=== PATIENT | male | born 1970 | race Caucasian/White ===

== ENCOUNTER 2016-09-19 18:42 | Emergency (ER) | payer SELFPAY ==
[~2016-09-19] VITALS: Ht 175.3 cm; Wt 104.3 kg
--- NOTE | ~2016-09-19 | EKG ---
PATIENT: HILLARY PEÑA UNIT #: [id number] Ventricular Rate: 74 BPM Atrial Rate: 74 BPM P-R Interval: 154 ms QRS Duration: 100 ms Q-T Interval: 370 ms QTC Calculation(Bezet): 410 ms P [place]: 27 degrees Calculated R [place]: 42 degrees Calculated T [place]: 4 degrees Diagnosis Line: Normal sinus rhythm Diagnosis Line: Normal ECG Diagnosis Line: No previous ECGs available Diagnosis Line: Confirmed by KARINA MAYNARD MD ([id number]) on Diagnosis Line: 09/20/2016 2:42:47 PM INTERPRETING MD: ALEYDA DUARTE
--- NOTE | ~2016-09-19 | CR63 ---
[facility] A Service of [facility] & [facility] RADIOLOGY TEXT RESULTS PATIENT: HILLARY PEÑA LOCATION: SED : 68 UNIT #: [id number] AGE: [address]: Aubrey Mckee SEX: M ORDER DR: [id number] [place] [id number] MR#: [id number] #: [id number] NAME: HILLARY PEÑA : 1970 SEX: M STUDY DATE/TIME: 09/19/2016 19:23 UNIT: SED ROOM: STUDY DESCRIPTION: CR Chest 2 View Attending Physician: Aubrey Mckee P.A.-C. Ordering Physician: Aubrey Mckee P.A.-C. Primary Care Physician: Primary Care Physician No MEDICAL IMAGING REPORT This report is preliminary unless electronic signature is present. EXAM Two-view chest HISTORY Short of air and tightness in chest for 2 days. No injury with chest pain. COMMENT Two views of the chest reviewed. Comparison study is from 10/19/2009. There is no pleural effusion. The cardiac silhouette size is top normal and not changed. There is abnormal thickening of the peribronchovascular soft tissues centrally. This was noted previously and is most prominent in the right middle lobe and lingula. I suspect there is some underlying chronic bronchitis or asthma. Please correlate for history of chronic lung disease. If this is not a known diagnosis, I would recommend further evaluation by pulmonary service. There is some patchy airspace disease at the left base, which is new from previous, and some increased prominence of markings in the left superior perihilar region, which could be a small amount of more acute airspace disease. Findings are not suggestive of congestive failure and there is no pleural effusion or pneumothorax. IMPRESSION This is an abnormal chest x-ray, with again considerable thickening of the peribronchovascular soft tissues centrally. This is also present in 2010 though there is probably new airspace disease at the left base and some increased markings in the left superior perihilar region. Please correlate for any known history of chronic bronchitis or asthma. If the patient does not have a known pulmonary diagnosis, I would recommend correlation with a pulmonary consultation for further evaluation. Findings are not suggestive of congestive failure. STAT * RESULT [facility] A Service of [facility] & [facility] RADIOLOGY TEXT RESULTS PATIENT: HILLARY PE[id number] [birth year] UNIT #: [id number] AGE: [address]: Aubrey Mckee PAC SEX: M ORDER DR: Dictated by... Antionette Lopez M.D. THIS IS AN ELECTRONICALLY VERIFIED REPORT Antionette Lopez M.D. at 09/19/2016 10:41 PM GRACE/roney TD: 09/19/2016 19:57 JOB #: [id number] MEDICAL IMAGING REPORT Page 1 of 1
[~2016-09-19 18:42] MED LIST: DIOVAN HCT 80/11 TAB PO; PROTONIX PO; SKELAXIN PO; VICODIN 5/500 T1 TAB PO
[2016-09-19 19:31] LABS: BASOPHIL# 0.1 X10e3 (0-0.3); BASOPHIL% 1.2 % (0-2.5); EOSINOPHIL# 0.3 X10e3 (0-0.7); HEMATOCRIT 41.8 % (38.0-50.0); HEMOGLOBIN 14.5 gm/dL (13.0-16.0); LYMPHOCYTE# 2.2 X10e3 (1.0-3.5); LYMPHOCYTE% 28.1 % (17.0-45.0); MEAN CELL VOLUME 83.5 FL (83-96); MEAN CORPUSCULAR HEMOGLOBIN 28.9 PG (28-34); MEAN CORPUSCULAR HGB CONC 34.7 g/dL (30-36); MEAN PLATELET VOLUME 8.4 FL (6.5-11.5); MONOCYTE# 0.9 X10e3 (0-1.0); MONOCYTE% 10.9 % (3.0-12.0); NEUTROPHIL# 4.4 X10e3 (1.5-7.1); NEUTROPHIL% 55.8 % (40-75); PLATELET COUNT 212 X10e3 (140-420); RED CELL DISTRIBUTION WIDTH 12.9 % (11.0-15.5); WHITE BLOOD COUNT 7.9 X10e3 (4.0-10.5)
[2016-09-19 19:37] LABS: DIFF IND NO
[2016-09-19 19:40] LABS: POC - CKMB 2.2 ng/mL (0.0-7.9); POC - MYOGLOBIN 81.8 ng/mL (0.0-169.0); POC - TROPONIN <0.05 ng/mL (<=0.05)
[2016-09-19 19:43] LABS: ALBUMIN SERUM 4.2 g/dL (3.5-5.0); ALKALINE PHOSPHATASE 47 U/L (32-92); ALT (SGPT) 27 U/L (10-40); AST (SGOT) 24 U/L (10-42); BILIRUBIN,TOTAL 0.5 mg/dL (0.2-2.0); BLOOD UREA NITROGEN 25 mg/dL (9-23); CALCIUM SERUM 9.1 mg/dL (8.4-10.2); CARBON DIOXIDE 28 mmol/L (22-31); CHLORIDE 104 mmol/L (100-111); GLOM FILT RATE Estimated 89.2 mL/min (>60); GLUCOSE FASTING 102 mg/dL (70-110); POTASSIUM 3.5 mmol/L (3.5-5.1); PROTEIN TOTAL SERUM 7.1 g/dL (6.0-8.3); SODIUM 140 mmol/L (135-145)
[2016-09-19 19:47] LABS: BILIRUBIN, DIRECT <0.1 mg/dL (0.0-0.2); BILIRUBIN,INDIRECT 0.4 mg/dL (0.0-0.9)
== END 2016-09-19 20:21 | disposition home or self-care (01) ==
LOC: SED 18:42
PROVIDERS: Physician Assistant
DX: J18.9 Pneumonia, unspecified organism (principal); J20.9 Acute bronchitis, unspecified; Z87.891 Personal history of nicotine dependence
CPT/HCPCS: 36415; 71020; 80048; 80076; 82553; 83874; 84484; 85025; 93005; 94640; 96374; 99285; J2930